=== PATIENT | male | born 1945 | race Caucasian/White ===

== ENCOUNTER → 2017-12-14 13:41 | Outpatient (CLI) | payer MEDICARE, OTHER, SELFPAY ==
--- NOTE | 2017-12-14 | DI.US.S_ITS ---
PROCEDURE: US CAROTID DOPPLER BI INDICATIONS: HYPERTENSION; CENTRAL RETINAL VEIN OCCLUSION TECHNIQUE: Color and pulse Doppler interrogation was performed of both carotid systems, with image documentation and velocity measurements. COMPARISON: None. FINDINGS: Stenosis calculations are based on SRU (Society of Radiologists in Ultrasound) criteria. Right side: Brachial blood pressure: 157/87 mm Hg. Common carotid artery peak systolic velocity: 58 cm/sec. Internal carotid artery peak systolic velocity: 82 cm/sec. Internal carotid artery end diastolic velocity: 26 cm/sec. External carotid artery peak systolic velocity: 49 cm/sec. ICA/CCA peak systolic ratio: 1.4. Reese scale imaging description: Marked plaque. Percent internal carotid artery stenosis: Less than 50%. Vertebral artery: Not visualized Left side: Brachial blood pressure: 154/80 mm Hg. Common carotid artery peak systolic velocity: 49 cm/sec. Internal carotid artery peak systolic velocity: 90 cm/sec. Internal carotid artery end diastolic velocity: 14 cm/sec. External carotid artery peak systolic velocity: 66 cm/sec. ICA/CCA peak systolic ratio: 1.8 Reese scale imaging description: Marked plaque Percent internal carotid artery stenosis: Less than 50%. Vertebral artery: Flow direction is antegrade. IMPRESSION: Less than 50% bilateral internal carotid artery stenosis. Dictated by: Yuri Dahl [facility] Interpreted: Elmer Baez MD on 12/14/2017 at 14:48 Approved by: Elmer Baez M.D. on 12/14/2017 at 15:16
== END ==
PROVIDERS: PCP Family Medicine; Visit Provider Ophthalmology
DX: I65.23 Occlusion and stenosis of bilateral carotid arteries (principal); I10 Essential (primary) hypertension
CPT/HCPCS: 93880

== ENCOUNTER 2019-05-02 09:45 | Emergency (ER) | payer MEDICARE, OTHER, SELFPAY ==
[2019-05-02 10:03] VITALS: BP 163/79; PULSE 90; RESP 18; TEMP 36.9; O2SAT 97
--- NOTE | 2019-05-02 10:17 | ED_ITS ---
HPI - Abdominal Pain General Chief Complaint: Abdominal Pain Stated Complaint: belly pain Time Seen by Provider: 05/02/19 10:14 Source: patient Mode of arrival: Ambulatory Limitations: no limitations History of Present Illness HPI narrative: 74-year-old male here for evaluation of right lower quadrant abdominal pain. Patient states the symptoms started on Thursday. Has a fairly sudden onset. Has been consistent since Thursday. Had some nausea and vomiting on Thursday that seems to have resolved. He states he has had kidney stones before he feels somewhat like kidney stones however he thinks that kidney stones or more ?sharp? than what he has today. He is having some dysuria. No change in bowel habits. No prior abdominal surgeries. Has not tried anything for symptoms prior to arrival Related Data Home Medications Medication Instructions Recorded Confirmed doxazosin 8 mg PO QPM 05/02/19 05/02/19 Previous Rx's Medication Instructions Recorded hydrocodone-acetaminophen [[place]] 1 tab PO Q4-6H PRN #14 tab 05/02/19 ondansetron 4 mg PO Q6H PRN #10 tab 05/02/19 Allergies Allergy/AdvReac Type Severity Reaction Status Date / Time No Known Drug Allergies Allergy Verified 05/02/19 10:05 Review of Systems Constitutional Constitutional: Denies fever(s) and Denies headache(s) ENT Ears, Nose, Mouth, and Throat: Denies dizziness and Denies headache(s) Cardiovascular Cardiovascular: Denies chest pain and Denies dyspnea Respiratory Respiratory: Denies dyspnea Gastrointestinal Gastrointestinal: Reports abdominal pain, Denies change in stool character, Den ies nausea and Denies vomiting Genitourinary Genitourinary: Denies hematuria, Reports dysuria and Denies flank pain Musculoskeletal Musculoskeletal: Denies myalgias and Denies arthralgias Integumentary/Breasts Skin/Breast: Denies rash Neurologic Neurologic: Denies dizziness and Denies headache(s) Hematologic/Lymphatic Hematologic/Lymphatic: Denies easy bleeding and Denies easy bruising Patient History Medical History Central retinal vein occlusion with macular edema of left eye (09/24/17) Essential hypertension (09/24/17) Osteoarthritis of both knees (01/05/15) Thrombocytopenia (01/05/15) Social History (Reviewed 10/28/19 @ 10:19 by ENMA Merhcant Smoking Status: Former smoker alcohol intake frequency: 0-2 drinks per day Substance Use Type: does not use Exam Initial Vital Signs Initial Vital Signs: Vital Signs Temperature 98.4 F 05/02/19 10:03 Pulse Rate 90 05/02/19 10:03 Respiratory Rate 18 05/02/19 10:03 Blood Pressure 163/79 H 05/02/19 10:03 Pulse Oximetry 97 05/02/19 10:03 Const General: cooperative, comfortable and well developed Orientation: alert, awake and oriented x3 HENMT Head: normal to inspection and normocephalic Resp Effort & Inspection: normal respiratory effort Auscultation: clear to auscultation bilaterally Cardio Rate: regular rate Rhythm: regular rhythm GI Inspection: non-distended Palpation: soft, No firm and tender (Right lower quadrant with guarding and rebound) Skin Lesions: lesions noted Rashes: rash noted Neuro General: alert, awake and oriented x3 Cognition: normal cognition Speech: speech normal Extrem General: normal to inspection and capillary refill normal Psych Appearance: grossly normal and well kempt Course Orders Ordered: ED Orders 05/02/19 10:19 EKG-12 Lead Stat 05/02/19 10:27 Complete Blood Count AUTO DIFF Stat Comprehensive Metabolic Panel Stat Lipase Stat Partial Thromboplastin Time Stat Prothrombin Time INR Stat 05/02/19 10:55 CT abdomen pelvis w con Stat 05/02/19 12:55 Urine Microscopic Stat Discontinued Medications Sodium Chloride (Normal Saline 0.9%) 1,000 mls @ 1,000 mls/hr IV BOLUS ONE Stop: 05/02/19 11:16 Last Infusion: 05/02/19 12:48 Dose: 0 mls/hr Documented by: Admin: 05/02/19 10:45 Dose: 1,000 mls/hr Documented by: NEGAR Morphine Sulfate (Morphine) 4 mg IV NOW ONE Stop: 05/02/19 10:17 Last Admin: 05/02/19 10:44 Dose: 4 mg Documented by: NEGAR Ondansetron HCl (Zofran) 4 mg IV NOW ONE Stop: 05/02/19 10:07 Last Admin: 05/02/19 10:44 Dose: 4 mg Documented by: NEGAR Vital Signs Vital signs: Vital Signs - 8 hr 05/02/19 10:03 05/02/19 11:15 05/02/19 11:30 Temperature 98.4 F Pulse Rate 90 77 73 Respiratory Rate 18 16 18 Blood Pressure 163/79 H Blood Pressure [Left Arm] 183/82 H 174/77 H Pulse Oximetry 97 99 99 05/02/19 12:30 05/02/19 13:00 Temperature Pulse Rate 78 Respiratory Rate 17 20 Blood Pressure Blood Pressure [Left Arm] 162/68 H 157/70 H Pulse Oximetry 94 97 MDM - Abdominal Pain Lab Data Attestation: I reviewed the patient's lab results. Result diagrams: 05/02/19 10:27 05/02/19 10:27 Labs: Lab Results 05/02/19 05/02/19 05/02/19 Range/Units 10: 10: 10:27 WBC 9.9 (4.5-11.0) X10^3/uL RBC 4.10 L (4.5-5.9) X10^6/uL Hgb 12.9 L (13.5-17.5) g/dL Hct 36.2 L (41-53) % MCV 88.2 (80-100) fL MCH 31.5 (26-34) PG MCHC 35.7 (30-36) % RDW 14.5 (11.6-14.8) % Plt Count 72 L (150-400) X10^3/uL Neut % (Auto) 78.0 H (50-75) % Lymph % (Auto) 6.5 L (25-40) % [place] % (Auto) 15.3 H (3-14) % Eos % (Auto) 0.0 L (2-4) % Baso % (Auto) 0.2 (0-2) % Neut # (Auto) 7700 H (6091-9389) /uL Lymph # (Auto) 600 L (6053-5229) /uL [place] # (Auto) 1500 H (0-900) /uL Eos # (Auto) 0 (0-450) /uL Baso # (Auto) 0 (0-100) /uL PT 13.0 H (10.1-12.7) SECONDS INR 1.1 (0.9-1.3) APTT 28 (26.4-36.2) SECONDS Sodium 141 (137-145) mmol/L Potassium 4.0 (3.4-5.1) mmol/L Chloride 106 (98-107) mmol/L Carbon Dioxide 24 (22-32) mmol/L BUN 38 H (9-20) mg/dL Creatinine 1.90 H (0.66-1.25) mg/dL Estimated GFR 34.8 L (>60) mL/min BUN/Creatinine Ratio 20.0 (6-22) Glucose 177 H (80-110) mg/dL Calcium 9.0 (8.4-10.2) mg/dL Total Bilirubin 1.5 H (0.2-1.3) mg/dL AST 28 (17-59) IU/L ALT 17 L (21-72) IU/L Alkaline Phosphatase 54 (38-126) U/L Total Protein 7.0 (6.3-8.2) g/dL Albumin 4.3 (3.5-5.0) g/dL Globulin 2.7 (1.7-4.1) g/dL Albumin/Globulin Ratio 1.6 (1.0-2.8) Lipase < 10 L (23-300) U/L Point of care testing: Urine Dip Bedside Urine Glucose Negative Bedside Urine Bilirubin - Negative Bedside Urine Ketone - Negative Urine Specific [place] 1.005 Bedside Urine Occult Blood - Negative Bedside Urine pH 5.5 Bedside Urine Protein +/- 15 Bedside Urine Urobilinogen +/- 1mg Bedside Urine Nitrite - Negative Bedside Urine Leukocytes - Negative Esterase Imaging Data CT scan - abdomen: Radiologist's impression: [address] [address] [address] Scan Report Signed Patient: David Miles R#: [id number] : 5Acct:[id number] Age/Sex: 74 / MDate of Service: 05/02/19 Loc: ED Accession Number: [id number] Procedure: CT abdomen pelvis w con Ordering Provider: César Hughes D.O. PROCEDURE: CT ABDOMEN PELVIS W CON INDICATIONS: Right-sided abdominal pain TECHNIQUE: After the administration of oral and intravenous contrast, 5 mm thick sections acquired from the diaphragms to the symphysis. 5 mm thick coronal and sagittal reformats were performed. For radiation dose reduction, the following was used: automated exposure control, adjustment of mA and/or kV according to patient size. COMPARISON: [facility], RG, CT KUB, 01/03/2006, 21:52. FINDINGS: Image quality: Diagnostic. ABDOMEN: Lung bases: There is a trace right-sided pleural effusion with associated atelectasis. The heart is normal in size. Coronary artery atherosclerosis is incidentally no jaime. Solid organs: There is a 3-4 mm calculus within the mid right ureter (image 56, series 2), which is new since the previous study. Prominent perinephric edema on the right is evident with associated moderate right-sided hydronephrosis. The left kidney is essentially unremarkable with the exception of a 2 mm inferior left renal calculus. No left-sided hydronephrosis or hydroureter is appreciated. The liver is slightly hypodense when compared to the spleen. Few small foci of low attenuation are seen within the liver, probably representing small parenchymal cysts, but are too small to accurately characterize. Gallstones are present within the gallbladder. The spleen is mildly enlarged. The adrenals are within normal limits. The pancreas is atrophic, but otherwise unremarkable. Peritoneum and bowel: There is a small hiatal hernia. The stomach is otherwise within normal limits. There may be slight wall thickening involving the 2nd portion of the duodenum, which may be reactive to the process involving the right kidney. The small bowel loops are nondilated. There is a large amount of stool seen within the proximal colon. No definite of bowel wall inflammation is evident. Distal colonic diverticulosis is appreciated without definite surrounding inflammation to suggest diverticulitis. The appendix is well visualized. Small amount of free fluid is seen within the right paracolic gutter. There is no loculated fluid collection or free air. Nodes and vessels: No retroperitoneal or mesenteric adenopathy. Aorta and inferior vena cava are normal in caliber. Prominent aortic and iliac artery atherosclerosis is noted. Renal artery atherosclerotic changes are also present which are not well characterized. Bones: No acute fracture or suspicious osseous lesion is evident. There are severe degenerative changes of the lumbar spine. Straightening of the normal lumbar lordosis is evident. PELVIS: Genitourinary: Bladder wall thickness is normal. Miscellaneous: No inguinal hernias or adenopathy. A small amount free fluid is seen within the pelvis. There is no loculated fluid collection. Bones: No suspicious bony lesions. No acute pelvic fractures are evident. Moderate degenerative changes of the hips are present. IMPRESSION: 1. 3-4 mm at least partially obstructing right renal calculus with corresponding hydronephrosis. 2. Nonobstructing punctate inferior left renal calculus. 3. Mild prominence of the wall of the 2nd portion of the duodenum probably is reactive to the process involving the right kidney. 4. Mild abdominal ascites and retroperitoneal fluid. No abscess or drainable fluid collections are appreciated. 5. Probable constipation. 6. Distal colonic diverticulosis without diverticulitis. 7. Cholelithiasis. 8. Possible mild hepatic steatosis. 9. Splenomegaly. 10. Small hiatal hernia. 11. Trace right-sided pleural effusion and associated atelectasis. 12. Coronary and aortic atherosclerosis. Dictated by: Jose Enrique Garcia M.D. on 05/02/2019 at 10:24 Approved by: Jose Enrique Garcia M.D. on 05/02/2019 at 10:32 ECG Data Attestation: I personally reviewed and interpreted this ECG as follows: Prior ECG tracings: not available for review Interpretation: Sinus rhythm Ventricular rate 84 Right bundle branch block QRS 158 milliseconds Normal QTC No ST T wave changes MDM Narrative Medical decision making narrative: Patient does have an increase in his creatinine and decreasing his GFR today. His urinalysis is not consistent with the urinary tract infection. The CT scan has multiple findings to include a right-sided kidney stone. I suspect that this is the cause of his symptoms. No other surgical condition found. We did discuss this with the patient. He states he has had kidney stones in the past. He states this does feel like his prior kidney stones. Discussed return precautions and follow-up instructions. He was instructed to follow up with his primary doctor with regard to his kidney function. He expressed understanding and agreement plan. Discharge Plan Departure Patient Disposition: Home Clinical Impression: Renal colic on right side Instructions: DI for Kidney Stones Activity Restrictions/Additional Instructions: I do recommend that you contact your primary provider for a follow-up especially to follow-up on your kidney function which was somewhat worse today than what it has been in the past. Return to the emergency department for any new symptoms to include fevers, inability to urinate, pain that is not controlled, or any other concerning symptoms. Prescriptions: New ondansetron 4 mg tablet,disintegrating 4 mg PO Q6H PRN (Reason: nausea and vomiting) Qty: 10 RF: 0 hydrocodone-acetaminophen [[place]] 5-325 mg tablet 1 tab PO Q4-6H PRN (Reason: pain) Qty: 14 RF: 0 No Action doxazosin 4 mg tablet 8 mg PO QPM RF: 0 Referrals: Shawn Woodson MD [Primary Care Provider] -
[2019-05-02 10:33] LABS: Add Manual Diff / Slide Review NO; Basophils Absolute Auto 0 /uL (0-100); Basophils Percent Auto 0.2 % (0-2); Eosinophils Absolute Auto 0 /uL (0-450); Hematocrit 36.2 % (41-53); Hemoglobin 12.9 g/dL (13.5-17.5); Lymphocytes Absolute Auto 600 /uL (1100-4500); Lymphocytes Percent Auto 6.5 % (25-40); Mean Corpuscular HGB Conc 35.7 % (30-36); Mean Corpuscular Hemoglobin 31.5 PG (26-34); Mean Corpuscular Volume 88.2 fL (80-100); Monocytes Absolute Auto 1500 /uL (0-900); Monocytes Percent Auto 15.3 % (3-14); Neutrophils Absolute Auto 7700 /uL (1500-7000); Platelet Count 72 X10^3/uL (150-400); Red Cell Distribution Width 14.5 % (11.6-14.8); White Blood Cell Count 9.9 X10^3/uL (4.5-11.0)
[2019-05-02 10:42] LABS: INR 1.1 (0.9-1.3)
[2019-05-02] MEDS: ONDANSETRON 4 MG/2 ML INJ IV (10:44)
[2019-05-02] MEDS: MORPHINE 4 MG/ML INJ IV (10:44)
[2019-05-02 10:45] LABS: PTT Partial Thromboplastin Tim 28 SECONDS (26.4-36.2)
[2019-05-02] MEDS: SODIUM CHLORIDE 0.9% 1,000 ML 1000 ML IV (10:45)
[2019-05-02 10:50] LABS: Alanine Aminotransferase 17 IU/L (21-72); Albumin 4.3 g/dL (3.5-5.0); Albumin Globulin Ratio 1.6 (1.0-2.8); Alkaline Phosphatase 54 U/L (38-126); Aspartate Aminotransferase 28 IU/L (17-59); Bilirubin Total 1.5 mg/dL (0.2-1.3); Blood Urea Nitrogen 38 mg/dL (9-20); Carbon Dioxide 24 mmol/L (22-32); Chloride 106 mmol/L (98-107); Estimated Glomerular Filt Rate 34.8 mL/min (>60); Globulin 2.7 g/dL (1.7-4.1); Glucose 177 mg/dL (80-110); HEMOLYSIS 33 (0-50); Lipase < 10 U/L (23-300); Sodium 141 mmol/L (137-145)
--- NOTE | 2019-05-02 10:55 | DI.CT.S_ITS ---
PROCEDURE: CT ABDOMEN PELVIS W CON INDICATIONS: Right-sided abdominal pain TECHNIQUE: After the administration of oral and intravenous contrast, 5 mm thick sections acquired from the diaphragms to the symphysis. 5 mm thick coronal and sagittal reformats were performed. For radiation dose reduction, the following was used: automated exposure control, adjustment of mA and/or kV according to patient size. COMPARISON: [facility], , CT KUB, 01/03/2006, 21:52. FINDINGS: Image quality: Diagnostic. ABDOMEN: Lung bases: There is a trace right-sided pleural effusion with associated atelectasis. The heart is normal in size. Coronary artery atherosclerosis is incidentally noted. Solid organs: There is a 3-4 mm calculus within the mid right ureter (image 56, series 2), which is new since the previous study. Prominent perinephric edema on the right is evident with associated moderate right-sided hydronephrosis. The left kidney is essentially unremarkable with the exception of a 2 mm inferior left renal calculus. No left-sided hydronephrosis or hydroureter is appreciated. The liver is slightly hypodense when compared to the spleen. Few small foci of low attenuation are seen within the liver, probably representing small parenchymal cysts, but are too small to accurately characterize. Gallstones are present within the gallbladder. The spleen is mildly enlarged. The adrenals are within normal limits. The pancreas is atrophic, but otherwise unremarkable. Peritoneum and bowel: There is a small hiatal hernia. The stomach is otherwise within normal limits. There may be slight wall thickening involving the 2nd portion of the duodenum, which may be reactive to the process involving the right kidney. The small bowel loops are nondilated. There is a large amount of stool seen within the proximal colon. No definite of bowel wall inflammation is evident. Distal colonic diverticulosis is appreciated without definite surrounding inflammation to suggest diverticulitis. The appendix is well visualized. Small amount of free fluid is seen within the right paracolic gutter. There is no loculated fluid collection or free air. Nodes and vessels: No retroperitoneal or mesenteric adenopathy. Aorta and inferior vena cava are normal in caliber. Prominent aortic and iliac artery atherosclerosis is noted. Renal artery atherosclerotic changes are also present which are not well characterized. Bones: No acute fracture or suspicious osseous lesion is evident. There are severe degenerative changes of the lumbar spine. Straightening of the normal lumbar lordosis is evident. PELVIS: Genitourinary: Bladder wall thickness is normal. Miscellaneous: No inguinal hernias or adenopathy. A small amount free fluid is seen within the pelvis. There is no loculated fluid collection. Bones: No suspicious bony lesions. No acute pelvic fractures are evident. Moderate degenerative changes of the hips are present. IMPRESSION: 1. 3-4 mm at least partially obstructing right renal calculus with corresponding hydronephrosis. 2. Nonobstructing punctate inferior left renal calculus. 3. Mild prominence of the wall of the 2nd portion of the duodenum probably is reactive to the process involving the right kidney. 4. Mild abdominal ascites and retroperitoneal fluid. No abscess or drainable fluid collections are appreciated. 5. Probable constipation. 6. Distal colonic diverticulosis without diverticulitis. 7. Cholelithiasis. 8. Possible mild hepatic steatosis. 9. Splenomegaly. 10. Small hiatal hernia. 11. Trace right-sided pleural effusion and associated atelectasis. 12. Coronary and aortic atherosclerosis. Dictated by: Jose Enrique Garcia M.D. on 05/02/2019 at 10:24 Approved by: Jose Enrique Garcia M.D. on 05/02/2019 at 10:32
[2019-05-02 11:15] VITALS: BP 183/82; PULSE 77; RESP 16; O2SAT 99
[2019-05-02 11:30] VITALS: BP 174/77; PULSE 73; RESP 18; O2SAT 99
[2019-05-02 12:30] VITALS: BP 162/68; RESP 17; O2SAT 94
[2019-05-02 13:00] VITALS: BP 157/70; PULSE 78; RESP 20; O2SAT 97
[2019-05-02 13:02] LABS: Bacteria Urine None Seen; RBC Urine None Seen (0-5/HPF)
[2019-05-02 13:10] LABS: Culture Indicated Urine Cult Not Indicated; Squamous Epithelial Cell Urine 0-1 /HPF (0-5/HPF); WBC Urine 0-1/HPF (0-5/HPF)
== END 2019-05-02 13:21 | disposition home or self-care (01) ==
PROVIDERS: Emergency Provider Emergency Medicine; PCP Family Medicine
DX: N23 Unspecified renal colic (principal); R79.89 Other specified abnormal findings of blood chemistry; Z87.442 Personal history of urinary calculi; R10.31 Right lower quadrant pain
CPT/HCPCS: 36415; 74177; 80053; 81003; 81015; 83690; 85025; 85610; 85730; 93005; 93010; 96361; 96374; 96375; 99283; 99285; J2270; J2405; Q9967

== ENCOUNTER → 2019-06-07 07:54 | Outpatient (CLI) | payer MEDICARE, OTHER, SELFPAY ==
--- NOTE | 2019-06-07 | DI.US.S_ITS ---
PROCEDURE: US SOFT TISSUE HEAD AND NECK INDICATIONS: PALPABLE LUMP LEFT NECK TECHNIQUE: Real-time scanning was performed of the neck region of interest, with image documentation. COMPARISON: None. FINDINGS: No soft tissue mass or fluid collection seen corresponding to the region of interest involving the left neck. IMPRESSION: No sonographic abnormality. Dictated by: Yuri SORIA Interpreted: Berenice Valadez MD on 06/07/2019 at 8:48 Approved by: Berenice Valadez MD, PhD on 06/07/2019 at 14:59
--- NOTE | 2019-06-07 | DI.US.S_ITS ---
PROCEDURE: US ABD AORTA ANEURYSM SCREEN INDICATIONS: SCREEN TECHNIQUE: Real time scanning was performed of the aorta and iliac arteries, with image documentation. COMPARISON: [facility]ed [facility], CT, CT ABDOMEN PELVIS W CON, 05/02/2019, 10:51. FINDINGS: Aorta: Proximal aortic diameter measures 2.6 cm. Mid-aorta measures 1.8 cm. Distal aortic diameter is 1.6 cm. Iliac arteries: Right common iliac artery measures 1.2 cm. Left common iliac artery measures 1.2 cm. IMPRESSION: Proximal aortic ectasia. 5 year followup ultrasound recommended Dictated by: Yuri Dahl [facility] Interpreted: Berenice Valadez MD on 06/07/2019 at 8:47 Approved by: Berenice Valadez MD, PhD on 06/07/2019 at 14:54
== END ==
PROVIDERS: PCP Family Medicine; Visit Provider Family Medicine
DX: Z13.6 Encounter for screening for cardiovascular disorders (principal); I77.811 Abdominal aortic ectasia; R22.1 Localized swelling, mass and lump, neck
CPT/HCPCS: 76536; 76706

== ENCOUNTER → 2020-02-07 14:38 | Outpatient (CLI) | payer MEDICARE, OTHER, SELFPAY ==
[2020-02-08 18:08] LABS: COVID19 Sendout Not Detected (Not Detect)
== END ==
PROVIDERS: PCP Family Medicine; Visit Provider Physician Assistant
DX: Z11.59 Encounter for screening for other viral diseases (principal)
CPT/HCPCS: 87635

== ENCOUNTER 2020-02-10 14:23 | Day surgery (SDC) | payer MEDICARE, OTHER, SELFPAY ==
[2020-02-10] VITALS (8 sets, daily range): BP systolic 120–159; BP diastolic 67–77; PULSE 45–63; RESP 12–20; TEMP 36.6–37.1; O2SAT 96–100; BMI 25.8
--- NOTE | 2020-02-10 | PATH_ITS ---
[facility] Accession Number: [id number] . 01 Material submitted: . PART A: colon - ASCENDING COLON 2 / 4 MM PART B: colon - TRANSVERSE COLON 1.2 MM PART C: colon - TRANSVERSE COLON 8 MM PART D: colon - SIGMOID COLON 1 CM PART E: colon - 44 @ STOCK BASE, 3CM @ TOP FRIABLE AND HYPERVASCULAR . 01 Diagnosis: A. Ascending Colon, Polyps, 2 mm, 4 mm, Biopsies: Fragments of tubular adenoma (two polyps removed). . B. Transverse Colon Polyp, 1.2, Biopsy: Tubular adenoma. . C. Transverse Colon Polyp, 8 mm, Biopsy: Tubular adenoma. . D. Sigmoid Colon Polyp, 1 cm, Biopsy: Tubular adenoma. . E. Colon Polyp at 44 cm, 3 cm, Stalk Base, Biopsies: Fragments of tubulovillous adenoma; please see comment. Negative for high-grade dysplasia or malignancy. [facility] 02/13/2020 1049 Local . 01 Comment: E. Given that these biopsies represent sampling of a larger lesion, these findings may not be telemarketing sales representative. As such, assurance of complete removal of the lesion and close clinical followup are recommended. . 01 Electronically signed: . Tal Cagle MD, PhD, Pathologist NPI- [id number] . 01 Gross description: . Part A: ASCENDING COLON 2 / 4 MM: Received in formalin are 3 fragment(s) of crockett, soft tissue measuring 0.3 x 0.3 x 0.2 cm to 0.2 x 0.2 x 0.1 cm submitted entirely in 1 cassette(s) Part B: TRANSVERSE COLON 1.2 MM: Received in formalin are 2 fragment(s) of crockett, soft tissue measuring 0.6 x 0.3 x 0.3 cm to 0.3 x 0.3 x 0.1 cm submitted entirely in 1 cassette(s) Part C: TRANSVERSE COLON 8 MM: Received in formalin are multiple fragment(s) of crockett, soft tissue measuring 0.8 x 0.7 x 0.2 cm in aggregate submitted entirely in 1 cassette(s) Part D: SIGMOID COLON 1 CM: Received in formalin are 2 fragment(s) of crockett, soft tissue measuring 0.7 x 0.5 x 0.4 cm to 0.3 x 0.1 x 0.1 cm submitted entirely in 1 cassette(s) Part E: 44 @ STOCK BASE, 3CM @ TOP FRIABLE AND HYPERVASCULAR: Received in formalin are 2 fragment(s) of crockett, soft tissue measuring 0.3 x 0.3 x 0.3 cm to 0.3 x 0.3 x 0.2 cm submitted entirely in 1 cassette(s) /QBJ 02/11/2020 0757 Local . 01 Pathologist provided ICD-10: D12.2, D12.3, D12.5, D12.6 . 01 CPT . 650232, 411709, 341998, [id number], 114535 Performed at: 01 [facility] [address] [place] [address], [place], [place] [id number] MD Daren Stevens MD Phone: [phone]
--- NOTE | 2020-02-10 11:53 | PM.HP.1 ---
History of Present Illness History of Present Illness Date Patient Seen: 02/10/20 Time Patient Seen: 15:30 Chief complaint: ALC Narrative: 74 year old male comes in today for consideration of a screening colonoscopy. He has never had a colonoscopy. There have been no lower GI symptoms suggesting disease such as change in bowel habits, bleeding, abdominal pain or anemia. There's been no family history of colon cancer or colon polyps. Overall health issues have been stable, including no major cardiac events for at least 6 weeks. PCP: Dr. 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 Patient History Medical History (Updated 05/17/19 @ 00:00 by ) Central retinal vein occlusion with macular edema of left eye (09/24/17) Essential hypertension (09/24/17) Osteoarthritis of both knees (01/05/15) Thrombocytopenia (01/05/15) Family & Social History Tobacco & Substance use: Smoking Status Former smoker alcohol intake frequency 0-2 drinks per day Substance Use Type does not use Meds Home Medications and Allergies Home Medications Medication Instructions Recorded Confirmed Type doxazosin 8 mg PO QPM 05/02/19 05/02/19 History hydrocodone-acetaminophen [[place]] 1 tab PO Q4-6H PRN #14 tab 05/02/19 Rx ondansetron 4 mg PO Q6H PRN #10 tab 05/02/19 Rx Allergies Allergy/AdvReac Type Severity Reaction Status Date / Time No Known Drug Allergies Allergy Verified 02/07/20 17:15 Review of Systems Review of Systems ROS: Yes All systems reviewed with the patient and are negative except as otherwise documented Exam Narrative Exam Narrative: GENERAL: Alert and oriented, appearing stated age and in no acute distress. HEENT: Head normocephalic/atraumatic. Neck soft and supple, no lymphadenopathy. LUNGS: Clear to ausculation bilaterally, no wheezes, rhonchi or rales. CV: Normal S1 and S2 with regular rate and rhythm, no audible murmurs, rubs or gallops. ABDOMEN: Soft, non-tender, non-distended, no organomegaly. Positive bowel sounds. EXTREMITIES: No clubbing, cyanosis, or edema. NEURO: Cranial nerves II through XII grossly intact, no focal deficits. PSYCH: Alert and oriented x 3. SKIN: No concerning lesions. Assessment & Plan Assessment & Plan narrative: 1. Screening for colon cancer Plan for colonoscopy. The nature and character of the procedure as well as anticipated results were discussed. The possibility of not completing the procedure was also discussed. Possible complications including aspiration pneumonia, bleeding, perforation and reaction to medications either for sedation or preparation and missed lesions were discussed. Questions were answered and proceeding to the colonoscopy was elected. Informed consent signed. I sincerely appreciate the referral allowing me to participate in this patient's care. Please contact me with any questions or concerns.
--- NOTE | 2020-02-10 11:57 | PM.OP.ENDO ---
Operative Date/Time/Diagnoses Date of procedure: 02/10/20 Time of procedure: 15:37 Pre-op diagnosis: 1. Screening for colon cancer Procedure & Clinicians Study performed: Colonoscopy Same procedure as scheduled: Yes Indications: 1. Screening for colon cancer Surgeon: Desire Tipton Procedure Notes SCOAP/Timeout: 15:36 Procedure in detail: ENDOSCOPIST: Desire Tipton MD Sedation RN: Wendy Quinteros RN Sedation start time: 3:37 p.m. Sedation end time: 4:40 p.m. PROCEDURE: Colonoscopy with methylene blue lift, cold snare, and placement of SPOT INDICATIONS: 1. Screening for colon cancer MEDICATION: Levsin 0.125 mg sublingual, incremental doses of Versed and fentanyl until appropriate level sedation achieved. ASA CLASS: 2 CECAL WITHDRAWAL TIME: 51 minutes COMPLICATIONS: None. EXTENT OF PROCEDURE: Cecum. QUALITY OF PREP: Good with portions of liquid stool. PROCEDURE: Prior to insertion of the colonoscope, a digital rectal examination was accomplished with circumferential palpation of the distal rectal mucosa without significant findings being noted. The high-definition colonoscope was passed into the rectum in the usual fashion and advanced over to the cecum without difficulty. The ileocecal valve, appendiceal stoma, and medial wall all could be inspected and no abnormalities were seen. ASCENDING COLON: As the colonoscope was withdrawn, care was taken to expose and inspect the haustral folds and 2 sessile polyps were seen, 2 and 4 mm, removed with cold biopsy forceps. HEPATIC FLEXURE: Normal, no polyps, diverticula or other abnormalities. TRANSVERSE COLON: 2 sessile polyps noted. The 1.2 cm polyp was lifted with methylene blue and removed with cold snare, polyp removed with a Cheung Net. The 8 mm polyp was removed with Jumbo forceps. Excellent hemostasis observed. Otherwise, no diverticula or other abnormalities. DESCENDING COLON: Minor diverticulosis, otherwise, no polyps, or other abnormalities. SIGMOID COLON: 1 cm sessile polyp, lifted with methylene blue and removed with cold snare. There was a large 2.5 cm pedunculated polyp with a stock originating at 44 cm from the rectum. The pedunculated polyp was multi lobed, friable, and hypervascular. Targeted biopsy taken x2. SPOT placement x 2 on the medial and lateral armenta approximately 2 cm distal to the polyp. Otherwise, minor diverticulosis noted. RECTUM: Normal. J maneuver was produced. There was no significant perianal disease. The J maneuver was broken. The remainder of the rectum was inspected and there was external hemorrhoid disease. The scope was withdrawn. IMPRESSION: 1. Ascending sessile polyps x2, 2 and 4 mm, removed with cold biopsy forceps 2. Transverse sessile polyps x2, 8 mm polyp removed with cold biopsy Jumbo forceps; 1.2 cm polyp lifted with methylene blue and removed with cold snare 3. Sigmoid sessile polyp x1, 1 cm, lifted with methylene blue and removed with cold snare 4. Sigmoid pedunculated polyp, 2.5 cm, base of stock at 44 cm from rectum, unresected. Targeted biopsy taken x2. SPOT placement x 2 on the medial and lateral armenta approximately 2 cm distal to the polyp. 5. Diverticulosis, minor, left-sided 6. External hemorrhoids, nonthrombosed PLAN: 1. Referral to GI for unresected pedunculated sigmoid polyp, 2.5 cm. 2. Follow-up in clinic status post pathology results. The possibility of a missed lesion including a malignancy has been discussed with the patient previously. Potential alarm symptoms have been discussed and should be reported immediately. Complications: none Post-procedure Recommendations: Will call with biopsy results Follow up: weeks (2) Disposition: PACU
[2020-02-10] MEDS: LACTATED RINGERS 1,000 ML 200 ML IV (15:05)
[2020-02-10] MEDS: HYOSCYAMINE 0.125 MG TABLET PO (15:05)
[2020-02-10] MEDS: MIDAZOLAM 5 MG/5 ML VIAL IV ×5 (15:37→16:23)
[2020-02-10] MEDS: fentaNYL 250 MCG/5 ML INJ IV ×3 (15:37→16:34)
[2020-02-10] MEDS: METHYLENE BLUE 50 MG/10 ML VIAL INJ (16:04)
== END 2020-02-10 17:26 | disposition home or self-care (01) ==
PROVIDERS: PCP Family Medicine; Referring Provider Student in an Organized Health Care Education/Training Program; Visit Provider Student in an Organized Health Care Education/Training Program
PROC: 0DJD8ZZ Inspection of Lower Intestinal Tract, Via Natural or Artificial Opening Endoscopic (ICD-10-PCS; CPT 45378; principal; 2020-02-10 15:15)
DX: Z12.11 Encounter for screening for malignant neoplasm of colon (principal); I10 Essential (primary) hypertension; K57.30 Diverticulosis of large intestine without perforation or abscess without bleeding; K64.4 Residual hemorrhoidal skin tags; D12.2 Benign neoplasm of ascending colon; D12.3 Benign neoplasm of transverse colon; D12.5 Benign neoplasm of sigmoid colon; D12.6 Benign neoplasm of colon, unspecified
CPT/HCPCS: 45381; 45385; 45380; J2250; J3010; Q9968

== ENCOUNTER → 2022-11-26 14:27 | Outpatient (CLI) | payer MEDICARE, OTHER, SELFPAY ==
--- NOTE | 2022-11-26 14:29 | DI.RAD.S_ITS ---
PROCEDURE: XR LUMBAR SPINE 2-3V INDICATIONS: groin pain TECHNIQUE: 3 views of the lumbar spine were acquired. COMPARISON: None. FINDINGS: Bones: 5 [id number] vertebrae are present. There is normal bony alignment. No vertebral body compression fractures. No suspicious bony lesions. Multilevel degenerative changes of the lumbar spine. Degenerative disc disease at multiple levels most prominent at L3-4, L4-5, and L5-S1. There is facet arthrosis in the lower lumbar spine. Mild rightward curvature of the thoracic spine. Large osteophytes throughout the lumbar spine. Soft tissues: Overlying bowel gas pattern is normal. No suspicious soft tissue calcifications. The aorta has atherosclerotic calcifications with no aneurysmal dilatation. IMPRESSION: 1. Multilevel degenerative changes of the lumbar spine with large disc osteophytes and facet arthrosis. 2. Multilevel disc disease with disc space narrowing most prominent at L3-4, L4-5, and L5-S1. Dictated by: Mohit Cordova M.D. on 11/26/2022 at 15:32 Approved by: Mohit Cordova M.D. on 11/26/2022 at 15:34
--- NOTE | 2022-11-26 14:29 | DI.RAD.S_ITS ---
PROCEDURE: XR HIP W PEL IF DONE LT 2V INDICATIONS: groin pain TECHNIQUE: AP pelvis with lateral view(s) of the left hip(s). COMPARISON: None. FINDINGS: Bones: Moderate degenerative changes of both hips are seen, worse on the left. No fractures or dislocations. Pelvic ring appears intact. No suspicious bony lesions. Soft tissues: The visualized bowel gas pattern is normal. No suspicious soft tissue calcifications. IMPRESSION: Degenerative changes of both hips consistent with osteoarthritis, worse on the left. Dictated by: Mohit Cordova M.D. on 11/26/2022 at 15:35 Approved by: Mohit Cordova M.D. on 11/26/2022 at 15:37
== END ==
PROVIDERS: PCP Family Medicine; Referring Provider Family Medicine; Visit Provider Family Medicine
DX: M19.90 Unspecified osteoarthritis, unspecified site (principal)
CPT/HCPCS: 72100; 73502

== ENCOUNTER → 2023-01-12 12:46 | Outpatient (CLI) | payer MEDICARE, OTHER, SELFPAY ==
--- NOTE | 2023-01-12 12:47 | DI.US.S_ITS ---
PROCEDURE: US ABDOMEN LIMITED INDICATIONS: Cytopenias, Rule out splenomegaly and liver disease TECHNIQUE: Real-time scanning was performed of the abdominal organs, with image documentation. COMPARISON: None. FINDINGS: Liver: Liver is normal in size and homogeneous in echotexture. Spleen: Spleen is enlarged, measuring 575 milliliter. Splenule at the hilum. IMPRESSION: Splenomegaly. Normal size and appearance of the liver. Dictated by: Norbert Napoles M.D. on 01/12/2023 at 13:54 Approved by: Norbert Napoles M.D. on 01/12/2023 at 13:55
== END ==
PROVIDERS: PCP Family Medicine; Referring Provider Internal Medicine Hematology & Oncology; Visit Provider Internal Medicine Hematology & Oncology
DX: D69.6 Thrombocytopenia, unspecified (principal); R16.1 Splenomegaly, not elsewhere classified
CPT/HCPCS: 76705

== ENCOUNTER → 2024-03-03 12:26 | Outpatient (CLI) | payer MEDICARE, OTHER, SELFPAY ==
--- NOTE | 2024-03-03 12:29 | DI.RAD.S_ITS ---
PROCEDURE: XR ABDOMEN 1V INDICATIONS: Calculus of ureter TECHNIQUE: One view of the abdomen acquired. COMPARISON: None. FINDINGS: Surgical changes and devices: None. Bowel: Bowel gas pattern is normal. Soft tissues: No suspicious abdominal calcifications. Marked splenomegaly is noted. There is a small calcific density projecting over the lower pole of the patient's left kidney measuring approximately 2 millimeters. Bones: No suspicious bony lesions. Patient is status post left total hip replacement. There is moderate degenerative changes involving the right hip. Degenerative changes are noted involving the lumbar spine. IMPRESSION: 1. Non-specific bowel gas pattern. 2. Small 2 millimeter calcification inferior pole of the patient's left kidney which may represent a renal calculus. 3. Significant splenomegaly. 4. Moderate degenerative changes right hip. 5. Status post left total hip replacement Dictated by: César Lindsay M.D. on 03/03/2024 at 14:42 Approved by: César Lindsay M.D. on 03/03/2024 at 14:46
== END ==
PROVIDERS: PCP Family Medicine; Referring Provider Urology; Visit Provider Urology
DX: N20.1 Calculus of ureter (principal); N28.89 Other specified disorders of kidney and ureter; R16.1 Splenomegaly, not elsewhere classified; Z96.642 Presence of left artificial hip joint
CPT/HCPCS: 74018

== ENCOUNTER → 2024-08-15 11:07 | Outpatient (CLI) | payer MEDICARE, OTHER, SELFPAY ==
--- NOTE | 2024-08-15 11:20 | DI.MRI.S_ITS ---
PROCEDURE: MR LUMBAR SPINE WO CON INDICATIONS: CHRONIC BILATERAL LOW BACK PAIN TECHNIQUE: Noncontrast sagittal T1 spin echo and T2 fast echo, sagittal STIR, and T2 fast spin echo through the lumbar spine. In cases with scoliosis, additional coronal T2 fast spin echo may be performed. COMPARISON: [facility], CR, XR LUMBAR SPINE 2-3V, 11/26/2022, 14:31. [facility], CT, CT KUB, 03/01/2024, 8:18. FINDINGS: Image quality: Excellent. Alignment and Curvature: There is straightening of normal lumbar lordosis. Bone Marrow: Marrow is of normal overall signal. No acute vertebral body compression fractures. Spinal Cord: Conus medullaris terminates at the T12-L1 level. Visualized cord demonstrates normal signal and size. Paraspinous Soft Tissues: No paravertebral masses. T12-L1: There is disc desiccation. No disc bulge, canal stenosis or neural foraminal narrowing. Bilateral facet arthrosis is also seen. L1-L2: There is disc desiccation. Broad-based disc bulge and bilateral facet arthrosis with hypertrophy of ligamentum flavum causing [id number] central canal stenosis and left worse than right bilateral neural foraminal narrowing. L2-L3: There is loss of disc signal and disc height. Broad-based disc bulge and bilateral facet arthrosis with hypertrophy of ligamentum flavum causing [id number] central canal stenosis and moderate bilateral neural foraminal narrowing. Bulging disc likely contacting bilateral exiting L2 nerve roots. L3-L4: Loss of disc height and disc desiccation. Diffuse disc herniation and bilateral facet arthrosis with hypertrophy of ligamentum flavum causing moderate central canal stenosis and severe bilateral neural foraminal narrowing. Bulging disc likely contacting bilateral exiting L3 nerve roots. L4-L5: There is complete loss of disc height and disc desiccation. Broad-based, more left-sided disc herniation and bilateral facet arthrosis causing [id number] central canal stenosis, severe left-sided neural foraminal narrowing and moderate to severe right-sided neural foraminal narrowing. There is compression of bilateral L4 and L5 nerve roots. L5-S1: There is loss of disc height and disc signal. Broad-based disc radiation and bilateral facet arthrosis causing moderate central canal stenosis and severe bilateral neural foraminal narrowing. Bulging disc is seen contacting bilateral L5 nerve roots. IMPRESSION: 1. No marrow edema. No acute vertebral body compression fracture or spondylolisthesis. 2. Spondylitic changes throughout lumbar spine causing various degrees of central canal stenosis and bilateral neural foraminal narrowing as described above. 3. No gross paraspinous soft tissue abnormalities are seen. Dictated by: Raulito Bean M.D. on 08/15/2024 at 14:41 Approved by: Raulito Bean M.D. on 08/15/2024 at 14:47
== END ==
PROVIDERS: PCP Family Medicine; Referring Provider Family Medicine; Visit Provider Family Medicine
DX: M47.816 Spondylosis without myelopathy or radiculopathy, lumbar region (principal); M47.817 Spondylosis without myelopathy or radiculopathy, lumbosacral region; M48.061 Spinal stenosis, lumbar region without neurogenic claudication; M48.07 Spinal stenosis, lumbosacral region; M54.50 Low back pain, unspecified; G89.29 Other chronic pain
CPT/HCPCS: 72148

== ENCOUNTER → 2024-11-15 11:44 | Outpatient (CLI) | payer MEDICARE, OTHER, SELFPAY ==
--- NOTE | 2024-11-15 11:46 | DI.CT.S_ITS ---
PROCEDURE: CT LUMBAR SPINE WO CON INDICATIONS: SPINAL STENOSIS TECHNIQUE: Noncontrast 0.8 mm thick sections acquired from the T12 level to the sacrum. Sagittal and coronal reformats were constructed. For radiation dose reduction, the following was used: automated exposure control. COMPARISON: [facility], CT, CT KUB, 03/01/2024, 8:18. [facility], MR, MR LUMBAR SPINE WO CON, 08/15/2024, 11:17. FINDINGS: Image quality: Excellent. Bones: There is normal bony alignment. No acute vertebral body compression fractures. No suspicious lytic or blastic bony lesions. No pars defects. T11-T12: There is mild loss of disc height. Bridging anterior osteophytes are seen. There is at least moderate right-sided and moderate left-sided facet hypertrophy. There is moderate to severe left-sided and moderate right-sided neural foraminal narrowing. Mild central canal narrowing is seen. T12-L1: The disc height is relatively well preserved. Moderate disc bulge is seen, which is eccentric to the left. Bridging anterior osteophytes are seen. No significant neural foraminal or central canal narrowing can be seen. L1-L2: The disc height is well preserved. Moderate generalized disc bulge is seen. No significant neural foraminal or central canal narrowing can be seen. L2-L3: At least moderate loss of disc height is seen. At least moderate disc bulge is seen. There is a superimposed central disc osteophyte protrusion. Moderate facet joint hypertrophy is seen. At least moderate bilateral neural foraminal narrowing is seen. Moderate central canal narrowing is seen. L3-L4: At least moderate loss of disc height is seen. At least moderate disc bulge is seen, which is eccentric to the left. Partially bridging endplate osteophytes can be seen on the left. Mild facet joint hypertrophy is seen. There is moderate bilateral neural foraminal narrowing seen. Moderate central canal narrowing is seen. L4-L5: Moderate to severe loss of disc height is seen. Endplate irregularity and sclerosis can be seen. Bridging endplate osteophytes are seen. At least moderate disc bulge is seen. There is a superimposed central disc osteophyte protrusion. Moderate to severe bilateral neural foraminal narrowing is seen. Moderate to severe central canal narrowing is seen. L5-S1: Moderate to severe loss of disc height is seen. Endplate irregularity and sclerosis can be seen. At least moderate facet hypertrophy is seen. Moderate bilateral neural foraminal narrowing is seen. Moderate central canal narrowing is seen. Soft tissues: No retroperitoneal masses or hematomas. Visualized aorta is normal in caliber. Atherosclerotic calcification is noted. There is a nonobstructing left-sided kidney stone, measuring 17 mm, with an internal density of 400 Hounsfield units. There is left-sided hydroureter and hydronephrosis, with an obstructing stone within the left ureter measuring 11 mm and 260 Hounsfield units, as on series 4, image 71. Associated moderate to severe left-sided hydroureter and hydronephrosis can be seen. Left hip arthroplasty hardware is partially seen. IMPRESSION: There is an obstructing left-sided kidney stone measuring 11 mm, with associated left-sided hydroureter and hydronephrosis. Multiple levels of lumbar spine degenerative change can be seen, which are worst inferiorly. Imaging obtained for operative localization. Additional findings: Nonobstructing left-sided kidney stone Left hip arthroplasty hardware Note: Note: Findings relayed to Dr. Flores via medical center manager Kelly at 4:20 p.m. [place] time on November 15, 2024. Dictated by: Gadiel Luke M.D. on 11/15/2024 at 15:11 Approved by: Gadiel Luke M.D. on 11/15/2024 at 15:22
== END ==
LOC: CT 11:45
PROVIDERS: PCP Family Medicine; Referring Provider Family Medicine; Visit Provider Neurological Surgery
DX: N20.0 Calculus of kidney (principal); N13.30 Unspecified hydronephrosis; M48.061 Spinal stenosis, lumbar region without neurogenic claudication; M47.814 Spondylosis without myelopathy or radiculopathy, thoracic region; M47.816 Spondylosis without myelopathy or radiculopathy, lumbar region; M47.817 Spondylosis without myelopathy or radiculopathy, lumbosacral region; I70.0 Atherosclerosis of aorta; Z96.642 Presence of left artificial hip joint
CPT/HCPCS: 72131